=== PATIENT | male | born 1960 | race Caucasian/White ===

== ENCOUNTER 2023-11-20 11:02 | Inpatient (IN) | payer MEDICARE ==
[~2023-11-20] VITALS: Ht 180.3 cm; Wt 107.5 kg
[2023-11-20 13:16] LABS: HEMATOCRIT 44.3 % (42.0-52.0); HEMOGLOBIN 14.7 g/dl (13.5-17.5); MEAN CORPUSCULAR HEMOGLOBIN 29.8 pg (27.0-33.0); MEAN CORPUSCULAR HGB CONC 33.2 g/dl (32.0-36.5); MEAN CORPUSCULAR VOLUME 89.9 fl (80.0-96.0); PLATELET COUNT, AUTOMATED 262 10^3/uL (150-450); RED BLOOD COUNT 4.93 10^6/uL (4.30-6.10); WHITE BLOOD COUNT 10.2 10^3/uL (4.0-10.0)
[2023-11-20] MEDS: NS 1,000 ML IV ONE (13:31)
[2023-11-20 13:39] LABS: LIPASE 23 U/L (12-53)
[2023-11-20 13:42] LABS: ALBUMIN 3.9 G/DL (3.2-5.2); ALKALINE PHOSPHATASE 100 U/L (46-116); ALT/SGPT 24 U/L (7.0-40); AST/SGOT 20 U/L (<34); BILIRUBIN,TOTAL 0.8 MG/DL (0.3-1.2); BLOOD UREA NITROGEN 17 MG/DL (9-23); CALCIUM LEVEL 9.1 MG/DL (8.3-10.6); CARBON DIOXIDE LEVEL 24 MMOL/L (20-31); CHLORIDE LEVEL 110 MMOL/L (98-107); CREATININE FOR GFR 0.71 MG/DL (0.70-1.30); GLOMERULAR FILTRATION RATE > 60.0 (>49); GLUCOSE, FASTING 99 MG/DL (74-106); POTASSIUM SERUM 4.4 MMOL/L (3.5-5.1); SODIUM LEVEL 140 MMOL/L (136-145); TOTAL PROTEIN 7.9 G/DL (5.7-8.2)
[2023-11-20] MEDS ORDERED: ISOVUE-370 76% 100ML VIAL As Ordered ONE (14:09)
[2023-11-20] MEDS: ONDANSETRON 4MG 2ML VIAL IV ONE (16:12)
[2023-11-20] MEDS ORDERED: ACETAMINOPHEN TAB 650MG DOSE (2X325MG) PO PRN (17:10)
[2023-11-20] MEDS ORDERED: SIMETHICONE 80MG CHEW TAB PO PRN (17:10)
[2023-11-20] MEDS ORDERED: MAALOX 30 ML SUSP *UDC PO PRN (17:10)
[2023-11-20] MEDS: LR 1,000 ML IV SCH (17:22)
[2023-11-20] MEDS ORDERED: HOME MED LIST COMPLETE! XX SCH (18:05)
[2023-11-20 20:20] VITALS: BP 164/89; TEMP 97.9; O2SAT 94
[2023-11-21 03:20] VITALS: BP 158/86; TEMP 98.2; O2SAT 100
[2023-11-21 05:04] LABS: BASO % 0.2 % (0.0-1.0); EOS % 0.2 % (0.0-3.0); HEMATOCRIT 41.8 % (42.0-52.0); HEMOGLOBIN 13.8 g/dl (13.5-17.5); LYMPH # 1.7 10^3/uL (1.5-5.0); LYMPH % 15.7 % (24.0-44.0); MEAN CORPUSCULAR HEMOGLOBIN 30.1 pg (27.0-33.0); MEAN CORPUSCULAR VOLUME 91.1 fl (80.0-96.0); MONO # 0.7 10^3/uL (0.0-0.8); MONO % 6.7 % (2.0-8.0); NEUTROPHILS # 8.3 10^3/uL (1.5-8.5); NEUTROPHILS % 76.7 % (36.0-66.0); PLATELET COUNT, AUTOMATED 254 10^3/uL (150-450); RED BLOOD COUNT 4.59 10^6/uL (4.30-6.10); WHITE BLOOD COUNT 10.8 10^3/uL (4.0-10.0)
[2023-11-21] MEDS: ONDANSETRON 4MG 2ML VIAL IV ONE (05:18)
[2023-11-21 05:31] LABS: BLOOD UREA NITROGEN 16 MG/DL (9-23); CALCIUM LEVEL 8.5 MG/DL (8.3-10.6); CARBON DIOXIDE LEVEL 22 MMOL/L (20-31); CHLORIDE LEVEL 108 MMOL/L (98-107); CREATININE FOR GFR 0.68 MG/DL (0.70-1.30); GLOMERULAR FILTRATION RATE > 60.0 (>49); GLUCOSE, FASTING 95 MG/DL (74-106); POTASSIUM SERUM 4.3 MMOL/L (3.5-5.1); SODIUM LEVEL 137 MMOL/L (136-145)
[2023-11-21] MEDS: FLEET OIL RETENTION ENEMA PR SCH (08:38)
[2023-11-21] MEDS: LACTULOSE 20GM/30ML SYRUP UDC PO SCH (08:39)
[2023-11-21] MEDS: HEPARIN SOD (PORCINE) 5000UNITS/ML 1ML VIAL/SYRINGE SC SCH (09:00)
[2023-11-21] MEDS: METOCLOPRAMIDE INJ 10MG/2ML VIAL IV PRN (10:57)
[2023-11-21 12:00] VITALS: BP 143/92; TEMP 97.7; O2SAT 94
[2023-11-21] MEDS: HYOSCYAMINE SULFATE 0.125 MG SUBL TABLET SL PRN (13:38)
[2023-11-21] MEDS: ONDANSETRON 4MG 2ML VIAL IV PRN (16:40)
[2023-11-21] MEDS ORDERED: ROCURONIUM BROMIDE 50MG/5ML VIAL As Ordered ONE (19:39)
[2023-11-21] MEDS ORDERED: MIDAZOLAM INJ 2MG/2ML VIAL As Ordered ONE (19:39)
[2023-11-21] MEDS ORDERED: propofoL 200 MG/20 ML VIAL As Ordered ONE (19:39)
[2023-11-21] MEDS ORDERED: SUGAMMADEX SODIUM 500 MG/5 ML VIAL (BRIDION) As Ordered ONE (19:39)
[2023-11-21] MEDS ORDERED: fentaNYL 250 MCG/5 ML INJECTION As Ordered ONE (19:39)
[2023-11-21] MEDS ORDERED: ONDANSETRON 4MG 2ML VIAL As Ordered ONE (19:39)
[2023-11-21] MEDS ORDERED: LIDOCAINE 2% 100MG/5ML SDV (FOR ANES.) As Ordered ONE (19:39)
[2023-11-21] MEDS: ceFAZolin 2 GM/D5W 50 ML IV BAG As Ordered ONE (19:40)
[2023-11-21] MEDS ORDERED: PHENYLephrine 500MCG 5ML (100MCG/ML) SYRINGE As Ordered ONE (19:41)
[2023-11-21] MEDS ORDERED: ePHEDrine SULFATE 25 MG/5 ML(5MG/ML) SYRINGE As Ordered ONE (19:41)
[2023-11-21] MEDS ORDERED: SUCCINYLCHOLINE 100MG/5ML SYRINGE As Ordered ONE (19:43)
[2023-11-21] MEDS ORDERED: ACETAMINOPHEN 1000MG 100ML IV BAG As Ordered ONE (20:01)
[2023-11-21] MEDS ORDERED: KETOROLAC 60MG 2ML VIAL As Ordered ONE (20:46)
[2023-11-21] MEDS: LIDOCAINE 1% SDV 30ML VIAL As Ordered ONE (20:48)
[2023-11-21] MEDS ORDERED: MEPERIDINE 25 MG/ML 1ML VIAL IV PRN (20:50)
[2023-11-21] MEDS ORDERED: HYDROMORPHONE HCL 0.5 MG/ 0.5 ML SYRINGE IV PRN (20:50)
[2023-11-21] MEDS ORDERED: fentaNYL 100 MCG/2 ML INJECTION IV PRN (20:50)
[2023-11-21] MEDS ORDERED: MORPHINE 2 MG/ML 1ML VIAL IV PRN (20:50)
[2023-11-21 21:45] VITALS: BP 132/63; TEMP 97.5; O2SAT 92
[2023-11-21 22:15] VITALS: BP 133/63; TEMP 97.7; O2SAT 93
[2023-11-21 22:45] VITALS: BP 148/84; TEMP 97.7; O2SAT 92
[2023-11-21 23:45] VITALS: BP 148/80; TEMP 97.9; O2SAT 92
[2023-11-22] VITALS (10 sets, daily range): BP systolic 128–150; BP diastolic 68–80; TEMP 97.7–97.9; O2SAT 93–96
[2023-11-22 06:02] LABS: BASO % 0.1 % (0.0-1.0); HEMATOCRIT 39.7 % (42.0-52.0); HEMOGLOBIN 13.4 g/dl (13.5-17.5); LYMPH # 1.1 10^3/uL (1.5-5.0); LYMPH % 8.8 % (24.0-44.0); MEAN CORPUSCULAR HGB CONC 33.8 g/dl (32.0-36.5); MONO # 1.5 10^3/uL (0.0-0.8); MONO % 12.2 % (2.0-8.0); NEUTROPHILS # 9.7 10^3/uL (1.5-8.5); NEUTROPHILS % 78.6 % (36.0-66.0); PLATELET COUNT, AUTOMATED 253 10^3/uL (150-450); RED BLOOD COUNT 4.46 10^6/uL (4.30-6.10); WHITE BLOOD COUNT 12.4 10^3/uL (4.0-10.0)
[2023-11-22 06:26] LABS: BLOOD UREA NITROGEN 23 MG/DL (9-23); CALCIUM LEVEL 8.9 MG/DL (8.3-10.6); CARBON DIOXIDE LEVEL 26 MMOL/L (20-31); CHLORIDE LEVEL 106 MMOL/L (98-107); CREATININE FOR GFR 0.75 MG/DL (0.70-1.30); GLOMERULAR FILTRATION RATE > 60.0 (>49); GLUCOSE, FASTING 129 MG/DL (74-106); SODIUM LEVEL 139 MMOL/L (136-145)
[2023-11-22] MEDS: FLEET OIL RETENTION ENEMA PR SCH (14:05)
[2023-11-23 04:00] VITALS: BP 138/76; TEMP 97.9; O2SAT 92
[2023-11-23 09:37] LABS: BASO % 0.2 % (0.0-1.0); EOS # 0.1 10^3/uL (0.0-0.5); EOS % 0.9 % (0.0-3.0); HEMATOCRIT 39.4 % (42.0-52.0); LYMPH # 2.3 10^3/uL (1.5-5.0); LYMPH % 26.4 % (24.0-44.0); MEAN CORPUSCULAR HEMOGLOBIN 29.3 pg (27.0-33.0); MEAN CORPUSCULAR VOLUME 88.9 fl (80.0-96.0); MONO # 1.2 10^3/uL (0.0-0.8); MONO % 13.1 % (2.0-8.0); NEUTROPHILS # 5.2 10^3/uL (1.5-8.5); NEUTROPHILS % 59.2 % (36.0-66.0); PLATELET COUNT, AUTOMATED 252 10^3/uL (150-450); RED BLOOD COUNT 4.43 10^6/uL (4.30-6.10); WHITE BLOOD COUNT 8.8 10^3/uL (4.0-10.0)
[2023-11-23 10:06] LABS: BLOOD UREA NITROGEN 18 MG/DL (9-23); CALCIUM LEVEL 8.7 MG/DL (8.3-10.6); CARBON DIOXIDE LEVEL 28 MMOL/L (20-31); CHLORIDE LEVEL 106 MMOL/L (98-107); CREATININE FOR GFR 0.69 MG/DL (0.70-1.30); GLOMERULAR FILTRATION RATE > 60.0 (>49); GLUCOSE, FASTING 133 MG/DL (74-106); MAGNESIUM LEVEL 1.8 MG/DL (1.8-2.4); POTASSIUM SERUM 3.7 MMOL/L (3.5-5.1); SODIUM LEVEL 139 MMOL/L (136-145)
[2023-11-23 12:00] VITALS: BP 141/78; TEMP 97.7; O2SAT 94
[2023-11-23] MEDS: POTASSIUM CHLORIDE 10MEQ SR TABLET PO SCH (14:58)
[2023-11-23 20:20] VITALS: BP 152/88; TEMP 97.9; O2SAT 93
[2023-11-24 03:46] VITALS: BP 148/83; TEMP 97.7; O2SAT 93
[2023-11-24 05:36] LABS: BASO % 0.4 % (0.0-1.0); EOS # 0.1 10^3/uL (0.0-0.5); EOS % 1.6 % (0.0-3.0); HEMATOCRIT 38.3 % (42.0-52.0); HEMOGLOBIN 12.5 g/dl (13.5-17.5); LYMPH # 2.7 10^3/uL (1.5-5.0); LYMPH % 32.4 % (24.0-44.0); MEAN CORPUSCULAR HEMOGLOBIN 29.8 pg (27.0-33.0); MEAN CORPUSCULAR HGB CONC 32.6 g/dl (32.0-36.5); MEAN CORPUSCULAR VOLUME 91.2 fl (80.0-96.0); MONO % 11.7 % (2.0-8.0); NEUTROPHILS # 4.4 10^3/uL (1.5-8.5); NEUTROPHILS % 53.7 % (36.0-66.0); PLATELET COUNT, AUTOMATED 241 10^3/uL (150-450); WHITE BLOOD COUNT 8.2 10^3/uL (4.0-10.0)
[2023-11-24 06:01] LABS: BLOOD UREA NITROGEN 16 MG/DL (9-23); CALCIUM LEVEL 8.5 MG/DL (8.3-10.6); CARBON DIOXIDE LEVEL 27 MMOL/L (20-31); CHLORIDE LEVEL 107 MMOL/L (98-107); CREATININE FOR GFR 0.69 MG/DL (0.70-1.30); GLOMERULAR FILTRATION RATE > 60.0 (>49); GLUCOSE, FASTING 103 MG/DL (74-106); MAGNESIUM LEVEL 1.7 MG/DL (1.8-2.4); POTASSIUM SERUM 3.7 MMOL/L (3.5-5.1); SODIUM LEVEL 137 MMOL/L (136-145)
[2023-11-24] MEDS: POTASSIUM CHLORIDE 10MEQ SR TABLET PO SCH (08:22)
[2023-11-24] MEDS: MAG SULF 1GM/100ML (MAG RUN) 1 GM in IV 1 EA IV SCH (08:23)
[2023-11-24] MEDS: MAGNESIUM OXIDE 400MG TAB (MAG-OX) PO SCH (09:42)
[2023-11-24] MEDS ORDERED: MAGN400T2 PO (11:07)
[2023-11-24] MEDS ORDERED: POTA-136 PO (11:07)
[2023-11-24] MEDS ORDERED: FLEETOIL PR (11:07)
[2023-11-24] MEDS ORDERED: SIME80TA16 PO (11:07)
[2023-11-24] MEDS ORDERED: PROTPAK PO (11:08)
[2023-11-24 12:00] VITALS: BP 155/85; TEMP 97.7; O2SAT 95
== END 2023-11-24 12:20 | disposition home or self-care (01) | DRG 331 ==
LOC: M ED 11:02 → M ED INP 17:06 → M MSPAV 20:06
PROVIDERS: ADMIT Family Medicine; ATTEND Hospitalist
PROC: 0D1 Gastrointestinal System, Bypass (ICD-10-PCS; principal; 2023-11-21 18:30)
DX: K56.601 Complete intestinal obstruction, unspecified as to cause (principal); K59.09 Other constipation; E66.9 Obesity, unspecified; Z68.33 Body mass index [BMI] 33.0-33.9, adult; K59.89 Other specified functional intestinal disorders

== ENCOUNTER → 2023-12-01 | Outpatient (REF) | payer MEDICARE ==
[~2023-12-01] MED LIST: FLEETOIL PR; MAGN400T2 PO; POTA-136 PO; PROTPAK PO; SIME80TA16 PO
[2023-12-01 18:50] LABS: BASO # 0.1 10^3/uL (0.0-0.2); BASO % 0.6 % (0.0-1.0); EOS # 0.1 10^3/uL (0.0-0.5); EOS % 0.9 % (0.0-3.0); HEMATOCRIT 42.8 % (42.0-52.0); LYMPH # 2.9 10^3/uL (1.5-5.0); LYMPH % 32.9 % (24.0-44.0); MEAN CORPUSCULAR HEMOGLOBIN 29.7 pg (27.0-33.0); MEAN CORPUSCULAR HGB CONC 32.7 g/dl (32.0-36.5); MEAN CORPUSCULAR VOLUME 90.9 fl (80.0-96.0); MONO # 0.8 10^3/uL (0.0-0.8); MONO % 8.9 % (2.0-8.0); NEUTROPHILS % 56.4 % (36.0-66.0); PLATELET COUNT, AUTOMATED 326 10^3/uL (150-450); RED BLOOD COUNT 4.71 10^6/uL (4.30-6.10); WHITE BLOOD COUNT 8.8 10^3/uL (4.0-10.0)
[2023-12-01 19:00] LABS: HEMOGLOBIN A1c 6.1 % (4.0-6.0)
[2023-12-01 19:17] LABS: ALBUMIN 3.5 G/DL (3.2-5.2); ALKALINE PHOSPHATASE 97 U/L (46-116); ALT/SGPT 57 U/L (7.0-40); AST/SGOT 24 U/L (<34); BILIRUBIN,TOTAL 0.3 MG/DL (0.3-1.2); BLOOD UREA NITROGEN 16 MG/DL (9-23); CALCIUM LEVEL 9.5 MG/DL (8.3-10.6); CARBON DIOXIDE LEVEL 27 MMOL/L (20-31); CHLORIDE LEVEL 109 MMOL/L (98-107); CHOLESTEROL LEVEL 177 MG/DL (<200); CHOLESTEROL RISK RATIO 6.41 (<5); CREATININE FOR GFR 0.73 MG/DL (0.70-1.30); GLOMERULAR FILTRATION RATE > 60.0 (>49); GLUCOSE, FASTING 91 MG/DL (74-106); HDL CHOLESTEROL 27.6 MG/DL (>40); LDL CHOLESTEROL 112.8 MG/DL (<100); MAGNESIUM LEVEL 1.9 MG/DL (1.8-2.4); NON-HDL-C 149.4 MG/DL; POTASSIUM SERUM 4.8 MMOL/L (3.5-5.1); SODIUM LEVEL 141 MMOL/L (136-145); TOTAL PROTEIN 7.6 G/DL (5.7-8.2); TRIGLYCERIDES LEVEL 183 MG/DL (<150)
[2023-12-01 19:21] LABS: THYROID STIMULATING HORMONE 3.103 uIU/ML (0.55-4.78); TOTAL 25(OH) VITAMIN D 20.7 NG/ML (20.0-100.0)
== END ==
LOC: M LAB REF 17:13
PROVIDERS: ATTEND Physician Assistant
DX: R19.09 Other intra-abdominal and pelvic swelling, mass and lump (principal); E55.9 Vitamin D deficiency, unspecified; E66.9 Obesity, unspecified; Z13.1 Encounter for screening for diabetes mellitus

== ENCOUNTER 2023-12-06 11:41 | Day surgery (SDC) | payer MEDICARE, SELFPAY ==
[~2023-12-06] VITALS: Ht 180.3 cm; Wt 103.1 kg
[2023-12-06] MEDS: NS 1,000 ML IV ONE (12:18)
[2023-12-06] MEDS ORDERED: propofoL 200 MG/20 ML VIAL As Ordered ONE (12:39)
[2023-12-06 13:34] VITALS: TEMP 97.3
[2023-12-06 13:50] VITALS: BP 139/75; O2SAT 93
== END 2023-12-06 14:00 | disposition home or self-care (01) ==
LOC: M OPP 11:41
PROVIDERS: ATTEND Surgery
DX: Z01.818 Encounter for other preprocedural examination (principal); K63.89 Other specified diseases of intestine; K56.699 Other intestinal obstruction unspecified as to partial versus complete obstruction; K59.00 Constipation, unspecified; K57.30 Diverticulosis of large intestine without perforation or abscess without bleeding; R93.3 Abnormal findings on diagnostic imaging of other parts of digestive tract

== ENCOUNTER → 2024-01-24 | Outpatient (CLI) | payer MEDICARE ==
[~2024-01-24] MED LIST changes: +LIQUID POLIBAR PLUS 105% w/v 750ML BTL As Ordered ONE
== END ==
LOC: M RAD 09:42
PROVIDERS: ATTEND Surgery
DX: K56.699 Other intestinal obstruction unspecified as to partial versus complete obstruction (principal)

== ENCOUNTER → 2024-04-18 | Outpatient (REF) | payer MEDICARE ==
[~2024-04-18] MED LIST changes: -LIQUID POLIBAR PLUS 105% w/v 750ML BTL As Ordered ONE; +MAG-400T7 PO; +PANT40TA29 PO; +STOO100C30 PO
[2024-04-18 14:02] LABS: APPEARANCE, URINE MANUAL CLEAR (CLEAR); BILIRUBIN, URINE MANUAL NEGATIVE (NEGATIVE); BLOOD URINE MANUAL NEGATIVE (NEGATIVE); COLOR, URINE MANUAL YELLOW (YELLOW); GLUCOSE, URINE (UA) MANUAL NEGATIVE (NEGATIVE); KETONE, URINE MANUAL NEGATIVE (NEGATIVE); LEUKOCYTE ESTERASE, URINE MAN NEGATIVE (NEGATIVE); NITRITE, URINE MANUAL NEGATIVE (NEGATIVE); PROTEIN, URINE MANUAL NEGATIVE (NEGATIVE); SPECIFIC GRAVITY,URINE MANUAL 1.025 (1.002-1.035); UROBILINOGEN, URINE MANUAL NORMAL (NORMAL)
[2024-04-18 14:21] LABS: CREATININE, URINE 151.1 MG/DL
[2024-04-18 14:22] LABS: MAU/CREAT RATIO 14.5 MCG/MG (0.0-30.0)
[2024-04-18 19:03] LABS: BLOOD UREA NITROGEN 15 MG/DL (9-23); CALCIUM LEVEL 9.2 MG/DL (8.3-10.6); CARBON DIOXIDE LEVEL 27 MMOL/L (20-31); CHLORIDE LEVEL 106 MMOL/L (98-107); CREATININE FOR GFR 0.73 MG/DL (0.70-1.30); GLOMERULAR FILTRATION RATE > 60.0 (>49); GLUCOSE, FASTING 121 MG/DL (74-106); POTASSIUM SERUM 4.6 MMOL/L (3.5-5.1); SODIUM LEVEL 141 MMOL/L (136-145)
== END ==
LOC: M LAB REF 13:01
PROVIDERS: ATTEND Physician Assistant
DX: I10 Essential (primary) hypertension (principal)

== ENCOUNTER 2024-04-30 06:15 | Inpatient (IN) | payer MEDICARE ==
[~2024-04-30] VITALS: Ht 180.3 cm; Wt 110.1 kg
[2024-04-30] MEDS: NS (Normal Saline) 0.9% 1,000 ML IV SCH ×2 (06:25→13:45)
[2024-04-30] MEDS ORDERED: MIDAZOLAM INJ 2MG/2ML VIAL As Ordered ONE (06:48)
[2024-04-30] MEDS ORDERED: propofoL 200 MG/20 ML VIAL As Ordered ONE (06:48)
[2024-04-30] MEDS ORDERED: LIDOCAINE 2% 100MG/5ML SDV (FOR ANES.) As Ordered ONE (06:48)
[2024-04-30] MEDS ORDERED: fentaNYL 100 MCG/2 ML INJECTION As Ordered ONE (06:48)
[2024-04-30] MEDS ORDERED: ACETAMINOPHEN 1000MG/100ML IV BAG As Ordered ONE (06:48)
[2024-04-30] MEDS ORDERED: ROCURONIUM BROMIDE 50MG/5ML VIAL As Ordered ONE (06:49)
[2024-04-30] MEDS: CelecoXIB 400 MG CAP PO ONE (06:49)
[2024-04-30] MEDS: ALVIMOPAN 12 MG CAPSULE (ENTEREG) PO ONE (06:49)
[2024-04-30] MEDS ORDERED: WHEA1TAB2 PO (07:09)
[2024-04-30] MEDS ORDERED: HOME MED LIST COMPLETE! XX SCH (07:10)
[2024-04-30] MEDS: ceFAZolin SOD 2 GM in IV 1 EA IV ONE (07:45)
[2024-04-30] MEDS: HEPARIN SOD (PORCINE) 5000UNITS/ML 1ML VIAL/SYRINGE SQ ONE (07:55)
[2024-04-30] MEDS: metroNIDAZOLE 500 MG in IV 1 EA IV ONE (08:15)
[2024-04-30] MEDS ORDERED: SUGAMMADEX SODIUM 500 MG/5 ML VIAL (BRIDION) As Ordered ONE (08:30)
[2024-04-30] MEDS: BUPivacaine LIPOSOME/PF 266MG 20ML VIAL (13.3MG/ML)(EXPAREL) As Ordered ONE (08:45)
[2024-04-30] MEDS ORDERED: LABETALOL 100MG/20ML VIAL As Ordered ONE (09:39)
[2024-04-30] MEDS: ceFAZolin 2 GM/D5W 50 ML IV BAG As Ordered ONE (11:41)
[2024-04-30] MEDS ORDERED: HYDROmorphone HCL 2MG/ML 1ML VIAL As Ordered ONE (12:21)
[2024-04-30] MEDS: LIDOCAINE 1% SDV 30ML VIAL As Ordered ONE (13:15)
[2024-04-30] MEDS ORDERED: MORPHINE 4 MG/ML 1ML VIAL IV PRN (13:40)
[2024-04-30] MEDS ORDERED: oxyCODONE 5MG TAB PO PRN (13:45)
[2024-04-30] MEDS ORDERED: HYDROMORPHONE HCL 0.5 MG/ 0.5 ML SYRINGE IV PRN (13:45)
[2024-04-30] MEDS ORDERED: fentaNYL 100 MCG/2 ML INJECTION IV PRN (13:45)
[2024-04-30] MEDS: ONDANSETRON 4MG 2ML VIAL IV PRN ×2 (14:51→18:16)
[2024-04-30 15:00] VITALS: BP_SYST 160; BP_SYST 168; BP_DIAS 80; BP_DIAS 84; TEMP 97.5; O2SAT 91; O2SAT 92
[2024-04-30] MEDS: LR 1,000 ML IV SCH (15:31)
[2024-04-30] MEDS: KETOROLAC 30 MG/ML 1ML VIAL IV SCH (15:31)
[2024-04-30 16:00] VITALS: BP 164/81; TEMP 97.7; O2SAT 91
[2024-04-30 17:00] VITALS: BP 164/80; TEMP 97.9; O2SAT 91
[2024-04-30 18:00] VITALS: BP 161/81; TEMP 98.1; O2SAT 91
[2024-04-30 19:00] VITALS: BP 163/79; TEMP 98.1; O2SAT 89
[2024-04-30 20:16] VITALS: BP 161/77; TEMP 99; O2SAT 92
[2024-04-30] MEDS: ALVIMOPAN 12 MG CAPSULE (ENTEREG) PO SCH (21:37)
[2024-04-30] MEDS: DOCUSATE SODIUM 100MG CAPSULE PO SCH (21:37)
[2024-05-01 00:11] VITALS: BP 112/66; TEMP 99.3; O2SAT 92
[2024-05-01 04:42] VITALS: BP 121/57; TEMP 98.9; O2SAT 94
[2024-05-01 05:55] LABS: BASO % 0.1 % (0.0-1.0); HEMATOCRIT 38.2 % (42.0-52.0); HEMOGLOBIN 12.7 g/dl (13.5-17.5); LYMPH # 1.3 10^3/uL (1.5-5.0); LYMPH % 7.3 % (24.0-44.0); MEAN CORPUSCULAR HEMOGLOBIN 29.9 pg (27.0-33.0); MEAN CORPUSCULAR HGB CONC 33.2 g/dl (32.0-36.5); MEAN CORPUSCULAR VOLUME 89.9 fl (80.0-96.0); MONO # 1.5 10^3/uL (0.0-0.8); MONO % 8.4 % (2.0-8.0); NEUTROPHILS # 15.3 10^3/uL (1.5-8.5); NEUTROPHILS % 83.7 % (36.0-66.0); PLATELET COUNT, AUTOMATED 223 10^3/uL (150-450); RED BLOOD COUNT 4.25 10^6/uL (4.30-6.10); WHITE BLOOD COUNT 18.2 10^3/uL (4.0-10.0)
[2024-05-01 06:33] LABS: BLOOD UREA NITROGEN 23 MG/DL (9-23); CARBON DIOXIDE LEVEL 25 MMOL/L (20-31); CHLORIDE LEVEL 108 MMOL/L (98-107); CREATININE FOR GFR 0.87 MG/DL (0.70-1.30); GLOMERULAR FILTRATION RATE > 60.0 (>49); GLUCOSE, FASTING 119 MG/DL (74-106); POTASSIUM SERUM 4.3 MMOL/L (3.5-5.1); SODIUM LEVEL 142 MMOL/L (136-145)
[2024-05-01 08:33] LABS: C REACTIVE PROTEIN QUANTITATIV 4.96 MG/DL (<1.0)
[2024-05-01] MEDS: METOCLOPRAMIDE INJ 10MG/2ML VIAL IV SCH (08:39)
[2024-05-01] MEDS: ENOXAPARIN 40MG/0.4ML SYRINGE (J1650 PER 10MG) SC SCH (08:41)
[2024-05-01 12:00] VITALS: BP 124/60; TEMP 98.8; O2SAT 92
[2024-05-01 18:24] VITALS: O2SAT 94
[2024-05-01 21:35] VITALS: BP 128/63; TEMP 99.3; O2SAT 93
[2024-05-02 04:08] VITALS: BP 130/64; TEMP 99.6; O2SAT 93
[2024-05-02 06:04] LABS: BASO % 0.2 % (0.0-1.0); EOS % 0.2 % (0.0-3.0); HEMATOCRIT 34.9 % (42.0-52.0); HEMOGLOBIN 11.5 g/dl (13.5-17.5); LYMPH # 2.1 10^3/uL (1.5-5.0); LYMPH % 12.6 % (24.0-44.0); MEAN CORPUSCULAR HEMOGLOBIN 29.7 pg (27.0-33.0); MEAN CORPUSCULAR VOLUME 90.2 fl (80.0-96.0); MONO # 1.3 10^3/uL (0.0-0.8); MONO % 7.9 % (2.0-8.0); NEUTROPHILS % 78.6 % (36.0-66.0); PLATELET COUNT, AUTOMATED 179 10^3/uL (150-450); RED BLOOD COUNT 3.87 10^6/uL (4.30-6.10); WHITE BLOOD COUNT 16.5 10^3/uL (4.0-10.0)
[2024-05-02 06:46] LABS: BLOOD UREA NITROGEN 15 MG/DL (9-23); C REACTIVE PROTEIN QUANTITATIV 11.03 MG/DL (<1.0); CALCIUM LEVEL 7.8 MG/DL (8.3-10.6); CARBON DIOXIDE LEVEL 25 MMOL/L (20-31); CHLORIDE LEVEL 109 MMOL/L (98-107); CREATININE FOR GFR 0.69 MG/DL (0.70-1.30); GLOMERULAR FILTRATION RATE > 60.0 (>49); GLUCOSE, FASTING 117 MG/DL (74-106); SODIUM LEVEL 142 MMOL/L (136-145)
[2024-05-02 12:00] VITALS: BP 143/80; TEMP 97.2; TEMP 99; O2SAT 94
[2024-05-02 20:27] VITALS: BP 144/78; TEMP 100.4; O2SAT 94
[2024-05-02] MEDS: ACETAMINOPHEN 325 MG TAB PO PRN (20:37)
[2024-05-02 22:13] VITALS: TEMP 99.3
[2024-05-03 04:15] VITALS: BP 143/71; TEMP 99.5; O2SAT 94
[2024-05-03 06:03] LABS: BASO % 0.2 % (0.0-1.0); EOS # 0.2 10^3/uL (0.0-0.5); EOS % 1.6 % (0.0-3.0); HEMATOCRIT 33.9 % (42.0-52.0); HEMOGLOBIN 11.1 g/dl (13.5-17.5); LYMPH # 2.2 10^3/uL (1.5-5.0); LYMPH % 15.5 % (24.0-44.0); MEAN CORPUSCULAR HEMOGLOBIN 29.2 pg (27.0-33.0); MEAN CORPUSCULAR HGB CONC 32.7 g/dl (32.0-36.5); MEAN CORPUSCULAR VOLUME 89.2 fl (80.0-96.0); MONO # 1.1 10^3/uL (0.0-0.8); MONO % 8.1 % (2.0-8.0); NEUTROPHILS # 10.4 10^3/uL (1.5-8.5); NEUTROPHILS % 74.2 % (36.0-66.0); PLATELET COUNT, AUTOMATED 183 10^3/uL (150-450)
[2024-05-03 06:22] LABS: BLOOD UREA NITROGEN 12 MG/DL (9-23); C REACTIVE PROTEIN QUANTITATIV 14.12 MG/DL (<1.0); CALCIUM LEVEL 7.9 MG/DL (8.3-10.6); CARBON DIOXIDE LEVEL 26 MMOL/L (20-31); CHLORIDE LEVEL 105 MMOL/L (98-107); CREATININE FOR GFR 0.63 MG/DL (0.70-1.30); GLOMERULAR FILTRATION RATE > 60.0 (>49); GLUCOSE, FASTING 102 MG/DL (74-106); POTASSIUM SERUM 3.8 MMOL/L (3.5-5.1); SODIUM LEVEL 142 MMOL/L (136-145)
[2024-05-03 08:35] VITALS: BP 143/72; TEMP 98.8; O2SAT 95
[2024-05-03] MEDS: FLUTICASONE PROP 0.05% NASAL SPRAY 16 GM (FLONASE) NARES PRN (10:48)
[2024-05-03] MEDS: oxyCODONE 5MG TAB PO PRN (13:03)
[2024-05-03] MEDS: PERCOCET 5MG/325MG TAB PO PRN (13:14)
[2024-05-03 14:00] VITALS: BP 139/71; TEMP 99; O2SAT 95
[2024-05-03 21:06] VITALS: BP 138/70; TEMP 99.1; O2SAT 97
[2024-05-04 04:00] VITALS: BP 118/71
[2024-05-04 06:12] LABS: BASO % 0.4 % (0.0-1.0); EOS # 0.4 10^3/uL (0.0-0.5); EOS % 3.6 % (0.0-3.0); HEMATOCRIT 33.4 % (42.0-52.0); HEMOGLOBIN 11.1 g/dl (13.5-17.5); LYMPH # 2.3 10^3/uL (1.5-5.0); LYMPH % 20.8 % (24.0-44.0); MEAN CORPUSCULAR HEMOGLOBIN 29.4 pg (27.0-33.0); MEAN CORPUSCULAR HGB CONC 33.2 g/dl (32.0-36.5); MEAN CORPUSCULAR VOLUME 88.6 fl (80.0-96.0); MONO % 9.1 % (2.0-8.0); NEUTROPHILS # 7.4 10^3/uL (1.5-8.5); NEUTROPHILS % 65.8 % (36.0-66.0); PLATELET COUNT, AUTOMATED 209 10^3/uL (150-450); RED BLOOD COUNT 3.77 10^6/uL (4.30-6.10); WHITE BLOOD COUNT 11.2 10^3/uL (4.0-10.0)
[2024-05-04 06:33] LABS: BLOOD UREA NITROGEN 13 MG/DL (9-23); CALCIUM LEVEL 8.1 MG/DL (8.3-10.6); CARBON DIOXIDE LEVEL 27 MMOL/L (20-31); CHLORIDE LEVEL 107 MMOL/L (98-107); CREATININE FOR GFR 0.66 MG/DL (0.70-1.30); GLOMERULAR FILTRATION RATE > 60.0 (>49); GLUCOSE, FASTING 108 MG/DL (74-106); POTASSIUM SERUM 3.9 MMOL/L (3.5-5.1); SODIUM LEVEL 143 MMOL/L (136-145)
[2024-05-04 06:57] VITALS: TEMP 98.6
[2024-05-04] MEDS ORDERED: diphenhydrAMINE CREAM 30GM TOP PRN (10:50)
[2024-05-04 12:30] VITALS: BP 147/80; TEMP 98.6; O2SAT 93
== END 2024-05-04 12:44 | disposition home or self-care (01) | DRG 330 ==
LOC: M OR 06:15 → M MSPAV 14:55
PROVIDERS: ADMIT Surgery; ATTEND Surgery
PROC: 0DTN4ZZ Resection of Sigmoid Colon, Percutaneous Endoscopic Approach (ICD-10-PCS; principal; 2024-05-01)
PROC: 0WQF4ZZ Repair Abdominal Wall, Percutaneous Endoscopic Approach (ICD-10-PCS; 2024-05-01)
PROC: 8E0W4CZ Robotic Assisted Procedure of Trunk Region, Percutaneous Endoscopic Approach (ICD-10-PCS; 2024-05-01)
DX: Z43.3 Encounter for attention to colostomy (principal); K57.92 Diverticulitis of intestine, part unspecified, without perforation or abscess without bleeding; K43.5 Parastomal hernia without obstruction or gangrene

== ENCOUNTER 2024-07-07 18:48 | Emergency (ER) | payer MEDICARE ==
[~2024-07-07] VITALS: Ht 180.3 cm; Wt 108.3 kg
[~2024-07-07 18:48] MED LIST changes: +WHEA1TAB2 PO
[2024-07-07] MEDS: ACETAMINOPHEN 500 MG TAB PO ONE (19:10)
[2024-07-07 19:37] LABS: BASO % 0.3 % (0.0-1.0); EOS # 0.1 10^3/uL (0.0-0.5); EOS % 0.5 % (0.0-3.0); HEMATOCRIT 39.5 % (42.0-52.0); LYMPH # 2.5 10^3/uL (1.5-5.0); LYMPH % 20.9 % (24.0-44.0); MEAN CORPUSCULAR HEMOGLOBIN 29.2 pg (27.0-33.0); MEAN CORPUSCULAR HGB CONC 32.9 g/dl (32.0-36.5); MEAN CORPUSCULAR VOLUME 88.8 fl (80.0-96.0); MONO # 1.1 10^3/uL (0.0-0.8); MONO % 9.3 % (2.0-8.0); NEUTROPHILS # 8.3 10^3/uL (1.5-8.5); NEUTROPHILS % 68.7 % (36.0-66.0); PLATELET COUNT, AUTOMATED 218 10^3/uL (150-450); RED BLOOD COUNT 4.45 10^6/uL (4.30-6.10); WHITE BLOOD COUNT 12.1 10^3/uL (4.0-10.0)
[2024-07-07 20:02] LABS: LIPASE 22 U/L (12-53)
[2024-07-07 20:03] LABS: ALBUMIN 3.4 G/DL (3.2-5.2); ALKALINE PHOSPHATASE 105 U/L (40-129); ALT/SGPT 21 U/L (7.0-40); AST/SGOT 18 U/L (<34); BILIRUBIN,DIRECT 0.4 MG/DL (<0.4); BILIRUBIN,TOTAL 1.4 MG/DL (0.3-1.2); BLOOD UREA NITROGEN 13 MG/DL (9-23); CALCIUM LEVEL 8.8 MG/DL (8.3-10.6); CARBON DIOXIDE LEVEL 25 MMOL/L (20-31); CHLORIDE LEVEL 102 MMOL/L (98-107); CREATININE FOR GFR 0.68 MG/DL (0.70-1.30); GLOMERULAR FILTRATION RATE > 90.0 (>49); GLUCOSE, FASTING 123 MG/DL (74-106); SODIUM LEVEL 136 MMOL/L (136-145); TOTAL PROTEIN 7.8 G/DL (5.7-8.2)
[2024-07-07] MEDS ORDERED: ISOVUE-370 76% 100ML VIAL As Ordered ONE (20:57)
[2024-07-07] MEDS: ONDANSETRON 4MG 2ML VIAL IV ONE (21:04)
[2024-07-07] MEDS: GASTROGRAFIN SOLUTION 30ML PO SCH (21:46)
[2024-07-08 01:09] LABS: HEMOGLOBIN 13.2 g/dl (13.5-17.5); MEAN CORPUSCULAR HEMOGLOBIN 29.4 pg (27.0-33.0); MEAN CORPUSCULAR VOLUME 89.1 fl (80.0-96.0); PLATELET COUNT, AUTOMATED 194 10^3/uL (150-450); RED BLOOD COUNT 4.49 10^6/uL (4.30-6.10); WHITE BLOOD COUNT 13.1 10^3/uL (4.0-10.0)
[2024-07-08] MEDS: HEPARIN SOD (PORCINE) 5000UNITS/ML 1ML VIAL/SYRINGE IV PRN (01:34)
[2024-07-08] MEDS: HEPARIN DRIP 25,000 UNITS in IV 1 EA IV SCH (01:35)
[2024-07-08 02:07] VITALS: TEMP 98.5
[2024-07-08 02:15] VITALS: BP 151/74
[2024-07-08 02:18] VITALS: O2SAT 94
== END 2024-07-08 02:26 | disposition short-term general hospital (02) ==
LOC: M ED 18:48
DX: I81 Portal vein thrombosis (principal); I82.890 Acute embolism and thrombosis of other specified veins; Z20.89 Contact with and (suspected) exposure to other communicable diseases; K57.92 Diverticulitis of intestine, part unspecified, without perforation or abscess without bleeding
CPT/HCPCS: 74177; 80048; 80076; 83605; 83690; 85025; 85027; 85730; 87040; 87486; 87581; 87633; 87798; 96365; 96366; 96375; 99284; J2405; Q9967